=== PATIENT | male | born 1950 | race Caucasian/White ===

== ENCOUNTER 2016-12-29 09:48 | Inpatient (IN) | payer MEDICARE, OTHER ==
[~2016-12-29] VITALS: Ht 180.3 cm; Wt 66.2 kg
[~2016-12-29 09:48] MED LIST: LORA2TAB89; NORVASC; OMEP20TA37; [UNRECOGNIZED DRUG - CODE]
[2016-12-29] MEDS ORDERED: SODIUM CHLORIDE 0.9% 1,000 ML IV ONE (10:23)
[2016-12-29] MEDS ORDERED: MORPHINE SULFATE 4 MG/ML SYRG IV ONE (10:30)
[2016-12-29] MEDS ORDERED: ONDANSETRON HCL 4 MG/2 ML VIAL IV ONE (10:30)
[2016-12-29 10:53] LABS: Basophils # (auto) 0.1 uL; Eosinophils # (auto) 0.1 uL; Eosinophils % (auto) 1.5 % (0.0-7.0); Hematocrit 43.3 % (41.0-53.0); Hemoglobin 14.4 g/dL (13.5-17.5); Lymphocytes # (auto) 2.5 uL; Lymphocytes % (auto) 28.5 % (10.0-50.0); Mean Corpuscular Hemoglobin 30.5 pg (28.0-32.0); Mean Corpuscular Hgb Conc. 33.3 g/dL (32.0-36.0); Mean Corpuscular Volume 91.7 fL (80.0-100.0); Mean Platelet Volume 9.1 fL (7.4-10.4); Monocytes # (auto) 0.9 uL; Monocytes % (auto) 10.1 % (0.0-12.0); Neutrophils # (auto) 5.2 uL; Neutrophils % (auto) 58.9 % (37.0-80.0); Platelet Count (auto) 347 10^3/uL (140-450); Red Cell Distribution Width 14.4 % (11.6-16.0); White Blood Cell 8.8 10^3/uL (4.4-10.8)
[2016-12-29 11:27] LABS: BUN/Creatinine Ratio 15.9; Magnesium 2.2 mg/dL (1.6-2.6); Potassium 3.9 mmol/L (3.5-5.1)
[2016-12-29] MEDS ORDERED: ASPirin 81 mg TAB PO ONE (15:15)
[2016-12-29] MEDS ORDERED: ENALAPRIL MALEATE 10 MG TAB PO ONE (15:15)
[2016-12-29] MEDS ORDERED: PANTOPRAZOLE 40 MG TAB PO ONE (15:15)
[2016-12-29] MEDS ORDERED: ALBUTEROL SULF 2.5 MG/0.5ML(0.5%) NEB SOLN NEB PRN (15:15)
[2016-12-29] MEDS ORDERED: MORPHINE SULF INJ 2 MG/ML SYRINGE 1ML IV PRN (15:15)
[2016-12-29] MEDS ORDERED: NITROGLYCERIN 0.4 MG SL TAB SL PRN (15:15)
[2016-12-29] MEDS ORDERED: LABETALOL HCL 5 MG/ML 4ML SYRINGE IV PRN (15:15)
[2016-12-29] MEDS ORDERED: ONDANSETRON HCL 4 MG/2 ML VIAL IV PRN (15:30)
[2016-12-29] MEDS: METOPROLOL TARTRATE 25 MG TAB PO SCH ×2 (15:42→22:00)
[2016-12-29 16:52] VITALS: BP 143/75
[2016-12-29] MEDS: HYDROcodone-ACET 5/325MG TAB PO PRN ×2 (17:31→23:58)
[2016-12-29] MEDS ORDERED: ENAL2.5T PO (17:45)
[2016-12-29 18:14] VITALS: BP 143/75
[2016-12-29] MEDS ORDERED: CLOPIDOGREL 300 MG TAB PO ONE (18:45)
[2016-12-29] MEDS: LORazepam 0.5 MG TAB PO PRN (18:47)
[2016-12-29 19:49] VITALS: BP 143/75
[2016-12-29 20:00] VITALS: BP 138/76
[2016-12-29 21:15] VITALS: BP 138/76
[2016-12-29 21:38] LABS: Urine Bilirubin Negative (Negative); Urine Blood Negative /uL (Negative); Urine Color Yellow (Yellow); Urine Glucose Normal (Normal); Urine Hyaline Cast FEW /lpf (0 - 2); Urine Ketone Negative (Negative); Urine Mucus FEW (None Seen); Urine Nitrite Negative (Negative); Urine RBC 1 /hpf (0 - 3); Urine Urobilinogen Normal (Negative)
[2016-12-29] MEDS: ENOXAPARIN SOD 80 MG/0.8ML SYRINGE SC SCH (22:12)
[2016-12-29] MEDS: ATORVASTATIN 20 MG TAB PO SCH (22:12)
[2016-12-30 05:47] VITALS: BP 144/89
[2016-12-30 09:00] VITALS: BP 134/71
[2016-12-30] MEDS: ASPirin 81 mg TAB PO SCH (09:49)
[2016-12-30] MEDS: METOPROLOL TARTRATE 25 MG TAB PO SCH ×2 (09:50→21:50)
[2016-12-30] MEDS: CLOPIDOGREL BISULFATE 75 MG TAB PO SCH (09:50)
[2016-12-30] MEDS: PANTOPRAZOLE 40 MG TAB PO SCH (10:17)
[2016-12-30] MEDS: ENOXAPARIN SOD 80 MG/0.8ML SYRINGE SC SCH ×2 (10:18→21:52)
[2016-12-30] MEDS: ENALAPRIL MALEATE 10 MG TAB PO SCH (10:22)
[2016-12-30] MEDS: LORazepam 0.5 MG TAB PO PRN ×2 (10:42→23:44)
[2016-12-30] MEDS: HYDROcodone-ACET 5/325MG TAB PO PRN ×2 (10:43→18:20)
[2016-12-30 13:00] VITALS: BP 140/72
[2016-12-30 17:00] VITALS: BP 149/69
[2016-12-30] MEDS: Boost Glucose Control 8 Ounces PO SCH ×2 (18:18→21:51)
[2016-12-30] MEDS: ATORVASTATIN 20 MG TAB PO SCH (21:51)
[2016-12-30 22:03] VITALS: BP 131/62
[2016-12-31 05:34] VITALS: BP 141/80
[2016-12-31] MEDS: Boost Glucose Control 8 Ounces PO SCH ×4 (05:38→22:03)
[2016-12-31 07:08] LABS: Basophils # (auto) 0.1 uL; Basophils % (auto) 0.8 % (0.0-2.0); Eosinophils # (auto) 0.2 uL; Eosinophils % (auto) 2.6 % (0.0-7.0); Hematocrit 39.1 % (41.0-53.0); Hemoglobin 12.8 g/dL (13.5-17.5); Lymphocytes # (auto) 3.6 uL; Mean Corpuscular Hemoglobin 29.9 pg (28.0-32.0); Mean Corpuscular Hgb Conc. 32.8 g/dL (32.0-36.0); Mean Corpuscular Volume 91.2 fL (80.0-100.0); Mean Platelet Volume 9.7 fL (7.4-10.4); Monocytes # (auto) 0.8 uL; Monocytes % (auto) 8.3 % (0.0-12.0); Neutrophils # (auto) 4.5 uL; Neutrophils % (auto) 49.3 % (37.0-80.0); Platelet Count (auto) 259 10^3/uL (140-450); Red Cell Distribution Width 14.1 % (11.6-16.0); White Blood Cell 9.1 10^3/uL (4.4-10.8)
[2016-12-31 07:21] LABS: Potassium 3.9 mmol/L (3.5-5.1)
[2016-12-31 07:25] LABS: Albumin 2.6 g/dL (3.4-5.0); BUN/Creatinine Ratio 19.8; Calcium 8.3 mg/dL (8.5-10.1)
[2016-12-31 07:41] LABS: Bilirubin, Total 0.7 mg/dL (0.2-1.0); Total Protein 6.2 g/dL (6.4-8.2)
[2016-12-31 09:00] VITALS: BP 148/71
[2016-12-31] MEDS: ASPirin 81 mg TAB PO SCH (10:29)
[2016-12-31] MEDS: METOPROLOL TARTRATE 25 MG TAB PO SCH ×2 (10:30→22:03)
[2016-12-31] MEDS: CLOPIDOGREL BISULFATE 75 MG TAB PO SCH (10:30)
[2016-12-31] MEDS: PANTOPRAZOLE 40 MG TAB PO SCH (10:30)
[2016-12-31] MEDS: ENALAPRIL MALEATE 10 MG TAB PO SCH (10:31)
[2016-12-31] MEDS: ENOXAPARIN SOD 80 MG/0.8ML SYRINGE SC SCH (10:31)
[2016-12-31 12:59] VITALS: BP 145/85
[2016-12-31 16:47] VITALS: BP 142/83
[2016-12-31 22:00] VITALS: BP 151/77
[2016-12-31] MEDS: ATORVASTATIN 20 MG TAB PO SCH (22:02)
[2016-12-31] MEDS: LORazepam 0.5 MG TAB PO PRN (22:03)
[2017-01-01] MEDS: TEMAZEPAM 15 MG CAP PO PRN (02:22)
[2017-01-01 05:00] VITALS: BP 133/71
[2017-01-01] MEDS: Boost Glucose Control 8 Ounces PO SCH ×4 (06:00→22:16)
[2017-01-01 06:13] LABS: INR 1.06 (0.9-1.15); Prothrombin Time 10.9 sec (9.37-12.3)
[2017-01-01 09:00] VITALS: BP 136/75
[2017-01-01] MEDS ORDERED: IODIXANOL 320MG/ML 100ML BTL IV ONE (09:15)
[2017-01-01] MEDS ORDERED: LIDOCAINE 2%HCL (LOCAL ANESTH.) INJ 20ML MDV ONE (09:15)
[2017-01-01] MEDS ORDERED: MIDAZOLAM HCL 1MG/1ML-2 ML VIAL ONE (09:28)
[2017-01-01] MEDS ORDERED: ANGIOMAX 250 MG VIAL IV ONE (09:28)
[2017-01-01] MEDS ORDERED: fentaNYL CITRATE 100 MCG/2 ML VL ONE (09:28)
[2017-01-01] MEDS ORDERED: SODIUM CHL 0.9% 50 ML ONE (09:29)
[2017-01-01] MEDS: ENALAPRIL MALEATE 10 MG TAB PO SCH (10:00)
[2017-01-01] MEDS: PANTOPRAZOLE 40 MG TAB PO SCH (10:00)
[2017-01-01] MEDS: METOPROLOL TARTRATE 25 MG TAB PO SCH ×2 (10:00→22:16)
[2017-01-01] MEDS: CLOPIDOGREL BISULFATE 75 MG TAB PO SCH (10:00)
[2017-01-01] MEDS: ASPirin 81 mg TAB PO SCH (10:00)
[2017-01-01] MEDS ORDERED: EPTIFIBATIDE INJ (2MG/ML) 10ML VIAL IV ONE (10:59)
[2017-01-01] MEDS ORDERED: ADENOSINE 6 MG/2 ML INJ IV ONE (11:05)
[2017-01-01] MEDS ORDERED: CLOPIDOGREL 300 MG TAB ONE (11:29)
[2017-01-01] MEDS ORDERED: ASPirin 81 mg TAB ONE (11:41)
[2017-01-01] MEDS: HYDROcodone-ACET 5/325MG TAB PO PRN ×2 (12:57→20:52)
[2017-01-01 17:15] VITALS: BP 135/75
[2017-01-01 22:00] VITALS: BP 142/142
[2017-01-01] MEDS: ATORVASTATIN 20 MG TAB PO SCH (22:16)
[2017-01-01] MEDS: LORazepam 0.5 MG TAB PO PRN (22:16)
[2017-01-02] MEDS: TEMAZEPAM 15 MG CAP PO PRN (01:10)
[2017-01-02 01:44] VITALS: BP 149/73
[2017-01-02] MEDS: HYDROcodone-ACET 5/325MG TAB PO PRN (04:53)
[2017-01-02 05:00] VITALS: BP 126/76
[2017-01-02 09:08] VITALS: BP 130/76
[2017-01-02] MEDS: Boost Glucose Control 8 Ounces PO SCH ×2 (09:50→12:14)
[2017-01-02] MEDS: CLOPIDOGREL BISULFATE 75 MG TAB PO SCH (09:58)
[2017-01-02] MEDS: ENALAPRIL MALEATE 10 MG TAB PO SCH (09:59)
[2017-01-02] MEDS: ASPirin 81 mg TAB PO SCH (09:59)
[2017-01-02] MEDS: PANTOPRAZOLE 40 MG TAB PO SCH (09:59)
[2017-01-02] MEDS: METOPROLOL TARTRATE 25 MG TAB PO SCH (09:59)
[2017-01-02] MEDS ORDERED: ASPirin 81 mg TAB PO ONE (10:00)
[2017-01-02] MEDS: LORazepam 0.5 MG TAB PO PRN (10:06)
[2017-01-02 11:09] VITALS: BP 130/76
== END 2017-01-02 12:45 | disposition home or self-care (01) | DRG 174 ==
LOC: ER 09:48 → EDUNIT# 09:48 → TELE 09:49 → TELE-CENTR 16:58
PROVIDERS: ADMIT Internal Medicine; ATTEND Internal Medicine
PROC: 027034Z Dilation of Coronary Artery, One Artery with Drug-eluting Intraluminal Device, Percutaneous Approach (ICD-10-PCS; principal; 2017-01-01)
PROC: 4A023N7 Measurement of Cardiac Sampling and Pressure, Left Heart, Percutaneous Approach (ICD-10-PCS; 2017-01-01)
PROC: B2111ZZ Fluoroscopy of Multiple Coronary Arteries using Low Osmolar Contrast (ICD-10-PCS; 2017-01-01)
PROC: B2151ZZ Fluoroscopy of Left Heart using Low Osmolar Contrast (ICD-10-PCS; 2017-01-01)
PROC: B41F1ZZ Fluoroscopy of Right Lower Extremity Arteries using Low Osmolar Contrast (ICD-10-PCS; 2017-01-01)
DX: I21.4 Non-ST elevation (NSTEMI) myocardial infarction (principal); I33.0 Acute and subacute infective endocarditis; E44.0 Moderate protein-calorie malnutrition; I25.82 Chronic total occlusion of coronary artery; B18.1 Chronic viral hepatitis B without delta-agent; Z68.1 Body mass index [BMI] 19.9 or less, adult; J44.9 Chronic obstructive pulmonary disease, unspecified; B18.2 Chronic viral hepatitis C; F17.210 Nicotine dependence, cigarettes, uncomplicated; I10 Essential (primary) hypertension; I25.10 Atherosclerotic heart disease of native coronary artery without angina pectoris; I34.0 Nonrheumatic mitral (valve) insufficiency; Z79.02 Long term (current) use of antithrombotics/antiplatelets; Z79.82 Long term (current) use of aspirin; Z79.899 Other long term (current) drug therapy; I25.2 Old myocardial infarction; Z82.3 Family history of stroke; Z83.3 Family history of diabetes mellitus; Z86.73 Personal history of transient ischemic attack (TIA), and cerebral infarction without residual deficits; Z87.74 Personal history of (corrected) congenital malformations of heart and circulatory system; Z95.1 Presence of aortocoronary bypass graft; Q21.9 Congenital malformation of cardiac septum, unspecified; Z80.9 Family history of malignant neoplasm, unspecified
CPT/HCPCS: 36415; 71010; 80053; 80061; 81001; 83036; 83735; 83880; 84484; 85025; 85610; 92928; 93005; 93306; 93458; 94640; 94761; 96361; 96374; 96375; 99152; C1874; J0153; J2250; J2405; Q9967